=== PATIENT | male | born 1995 | race Caucasian/White ===

== ENCOUNTER → 2016-04-05 | Outpatient (CLI) | payer BC, OTHER ==
--- NOTE | 2016-04-05 13:27 | DIAGNOSTIC IMAGING REPORT ---
RIGHT FOREARM 2 VIEWS CLINICAL HISTORY: Follow-up right ulnar fracture. COMPARISON: Right forearm radiographs January 25, 2016 and March 01, 2016. FINDINGS: Postsurgical findings consistent with internal fixation of the diaphyseal fracture of the right ulna is noted. Near complete healing of the fracture is noted. Alignment is unchanged and appears anatomic. Hardware is intact. No additional fractures are identified. There is no right elbow joint effusion. IMPRESSION: Near complete healing of the right ulnar fracture status post internal fixation. Anatomic alignment. Hardware intact. Electronically signed by: Ortiz Flower M.D. 04/05/2016 1:25 PM Dictated Date/Time: 04/05/2016 1:24 PM
== END | disposition home or self-care (01) ==
LOC: C.RDSM 13:41
PROVIDERS: ATTEND Family Medicine
DX: S52.231D Displaced oblique fracture of shaft of right ulna, subsequent encounter for closed fracture with routine healing (principal); X58.XXXD Exposure to other specified factors, subsequent encounter